=== PATIENT | female | born 1990 | race African-American/Black ===

== ENCOUNTER 2016-07-13 16:29 | Emergency (ER) | payer MEDICAID ==
[~2016-07-13] VITALS: Ht 165.1 cm; Wt 70.0 kg
[~2016-07-13 16:29] MED LIST: CEPH500C3 PO
[2016-07-13 16:30] VITALS: BP 123/76; PULSE 87; RESP 16; TEMP 98.2; O2SAT 97
[2016-07-13] MEDS ORDERED: PENI250T59 PO (17:50)
[2016-07-13] MEDS ORDERED: IBUP800T23 PO (18:49)
[2016-07-13] MEDS ORDERED: MOME17I EACH NARE (18:49)
--- NOTE | 2016-07-13 18:50 | PD ---
HPI Chief Complaint: Cold / Flu Symptoms Time Seen by Provider: 18:42 Travel History International Travel<30 days: No Contact w/Intl Traveler<30days: No Traveled to known affect area: No History of Present Illness HPI 26-year-old female presents to the emergency department complaint of cough, nasal congestion, body aches, decreased appetite that started this morning. Denies ear pain or throat pain. Her son was diagnosed with stomach flu and he has been vomiting. Reports feeling extremely hot last night and feverish but did not take her temperature not reported temperature maximum. Took ibuprofen at approximately 2:30 this afternoon with minimal relief of body aches. Denies chest pain, shortness breath, abdominal pain, nausea, vomiting. Has not tried any other treatments to alleviate her symptoms. Did not receive influenza vaccine. No known allergies. Denies significant past medical history. No other modifying factors or associated signs and symptoms. PFSH Past Medical History Anxiety: Yes Depression: Yes Diminished Hearing: No ?: Not LMP: 07/10/15 : 2 Para: 1 Miscarriage: 1 Dilation and Curettage (D&C): Yes Past Surgical History Section: Yes (2007) Gynecologic Surgery: Yes (D & C FOR A MISCARRIAGE) Social History Alcohol Use: No Tobacco Use: No Substance Use: No Allergies-Medications (Allergen,Severity, Reaction): Coded Allergies: No Known Allergies (Verified , 07/13/16) Reported Meds & Prescriptions Reported Meds & Active Scripts Active Nasonex Nasal [place] (Mometasone Furoate) 50 Mcg/Act Naspr 2 [place] EACH NARE DAILY PRN Ibuprofen 800 Mg Tab 800 Mg PO Q6HR PRN Reported Penicillin Vk (Penicillin V Potassium) 250 Mg Tab 250 Mg PO Q6H Review of Systems Except as stated in HPI: all other systems reviewed are Neg Physical Exam Narrative GENERAL: Well-nourished, well-developed [place] female patient, in no acute distress; afebrile; appears to not feel well, but nontoxic-appearing SKIN: Warm and dry. No rash. HEAD: Atraumatic. Normocephalic. EYES: Pupils equal and round at 3 mm with brisk reaction. No scleral icterus. No injection or drainage. PERRLA. ENT: Mucosa pink and moist. No erythema or exudates. No uvular edema. No uvular , palatal, or tonsillar deviation. Airway patent. EARS: Bilateral pinnae and external canals appear within normal limits. Bilateral tympanic membranes without erythema, dullness or perforation. NECK: Trachea midline. No lymphadenopathy. CARDIOVASCULAR: Regular rate and rhythm. No murmur appreciated. RESPIRATORY: No accessory muscle use. Clear to auscultation. Breath sounds equal bilaterally. GASTROINTESTINAL: Abdomen soft, non-tender, nondistended. Hepatic and splenic margins not palpable. Bowel sounds are active 4 quadrants. MUSCULOSKELETAL: No obvious deformities. No clubbing. No cyanosis. No edema. NEUROLOGICAL: Awake and alert. Oriented 3. No obvious cranial nerve deficits. Motor grossly within normal limits. Normal speech. Moves all extremities. 5/5 strength to all extremities. PSYCHIATRIC: Appropriate mood and affect; insight and judgment normal. Data Data Last Documented VS Vital Signs Date Time Temp Pulse Resp B/P Pulse Ox O2 Delivery O2 Flow Rate FiO2 07/13/16 16:30 98.2 87 16 123/76 97 Orders Influenzae A/B Antigen (07/13/16 18:42) MDM Medical Decision Making Medical Screen Exam Complete: Yes Emergency Medical Condition: Yes Medical Record Reviewed: Yes Differential Diagnosis Viral illness, influenza, bronchitis Narrative Course 26-year-old female with flulike symptoms that started this morning. And is also sick. The patient is afebrile. She reports feeling feverish last night but did not take her temperature. She doesn't look like she feels well, but she is nontoxic appearing. Physical exam is unremarkable. Patient took ibuprofen last at 2:30 PM. Influenza ordered and negative. Patient is medically cleared and stable for discharge. Discussed reasons to return to the emergency department. Instructed patient to follow up with primary care provider. Patient agrees with treatment plan. The patients vital signs are stable and the patient is stable for outpatient follow-up and treatment. Patient discharged home, stable and in no acute distress. Diagnosis Primary Impression: Viral illness Referrals: Primary Care Physician Patient Instructions: Cold Symptoms (ED), General Instructions, Safe Use of Cough and Cold Medicines (ED) Additional Instructions: Ibuprofen or Tylenol as directed and as needed to reduce fever/pain [id number] decongestants or antihistamines as directed and as needed for symptom management Get plenty of sleep/rest Drink plenty of fluids to prevent dehydration [place] diet to encourage nutrition such as crackers, fruit, applesauce, toast, soup etc. Use an air humidifier/turn off ceiling fans Follow-up with your primary care provider Return immediately to the emergency department with worsening of symptoms Med/Other Pt SpecificInfo: Prescription(s) given Scripts Mometasone Nasal [place] (Nasonex Nasal [place])50 Mcg/Act Naspr2 [place] EACH NARE DAILY PRN (NASAL CONGESTION) #1 BOTTLE Ref 0 Prov:Ana Luisa Sanchez 07/13/16 Ibuprofen 800 Mg [id number] Mg PO Q6HR PRN (PAIN) #30 TAB Ref 0 Prov:Ana Luisa Sanchez 07/13/16 Disposition: 01 DISCHARGE HOME Condition: Stable Ana Luisa Sanchez Jul 13, 2016 18:50 Ana Luisa Sanchez Jul 13, 2016 18:50
== END 2016-07-13 19:50 | disposition home or self-care (01) ==
LOC: NEPB 16:29
DX: B34.9 Viral infection, unspecified (principal); R05 Cough; R09.81 Nasal congestion; M79.1 Myalgia
CPT/HCPCS: 87804; 99283

== ENCOUNTER 2017-05-02 11:37 | Emergency (ER) | payer MEDICAID ==
[~2017-05-02] VITALS: Ht 165.1 cm; Wt 85.0 kg
[~2017-05-02 11:37] MED LIST changes: -CEPH500C3 PO; +IBUP800T23 PO; +MOME17I EACH NARE; +PENI250T59 PO
[2017-05-02 11:39] VITALS: BP 133/76; PULSE 100; RESP 20; TEMP 98.8; O2SAT 98
--- NOTE | 2017-05-02 12:08 | PD ---
HPI . Pelvic pain and vaginal spotting Chief Complaint: Related Problem Time Seen by Provider: 11:54 Travel History International Travel<30 days: No Contact w/Intl Traveler<30days: No Traveled to known affect area: No History of Present Illness HPI This patient presents stating that she had some pelvic pain and vaginal spotting following sexual intercourse. This happened last night. Her symptoms have completely resolved. She states her last normal menstrual period was sometime in the first part of March. She has had a positive home test. She has her first OB appointment next week. And about the spotting and cramping and presented to us today. In addition, she has a stuffy nose. PFSH Past Medical History Anxiety: Yes Depression: Yes Diminished Hearing: No Immunizations Current: Yes Tetanus Vaccination: < 5 Years ?: LMP: 03/09/17 ? : 2 Para: 1 Miscarriage: 1 Dilation and Curettage (D&C): Yes Past Surgical History Section: Yes (2007) Gynecologic Surgery: Yes (D & C FOR A MISCARRIAGE) Other Surgery: Yes (ectopic ) Social History Alcohol Use: No Tobacco Use: Yes (1 cigar) Substance Use: Yes (marijuana) Allergies-Medications (Allergen,Severity, Reaction): Coded Allergies: No Known Allergies (Verified , 07/13/16) Reported Meds & Prescriptions Reported Meds & Active Scripts Active Nasonex Nasal [place] (Mometasone Furoate) 50 Mcg/Act Naspr 2 [place] EACH NARE DAILY PRN Ibuprofen 800 Mg Tab 800 Mg PO Q6HR PRN Reported Penicillin Vk (Penicillin V Potassium) 250 Mg Tab 250 Mg PO Q6H Review of Systems Except as stated in HPI: all other systems reviewed are Neg HENT: Positive: Congestion Genitourinary: Positive: Pelvic Pain, Vaginal Bleeding, No: Urgency, Frequency , Dysuria Physical Exam Narrative GENERAL: Awake and alert in no acute distress. SKIN: warm/dry. HEAD: Normocephalic. Atraumatic. EYES: Pupils equal and round. No scleral icterus. No injection or drainage. ENT: No nasal bleeding or discharge. Mucous membranes pink and moist. Nasal congestion. NECK: Trachea midline. Full range of motion without pain.. CARDIOVASCULAR: Regular rate and rhythm. RESPIRATORY: No accessory muscle use. Clear to auscultation. Breath sounds equal bilaterally. GASTROINTESTINAL: Abdomen soft. Nontender. Bowel sounds present. Nondistended. MUSCULOSKELETAL: No obvious deformities. NEUROLOGICAL: Awake and alert. No obvious cranial nerve deficits. Motor grossly within normal limits. Normal speech. PSYCHIATRIC: Appropriate mood and affect; insight and judgment normal. Data Data Last Documented VS Vital Signs Date Time Temp Pulse Resp B/P (MAP) Pulse Ox O2 Delivery O2 Flow Rate FiO2 05/02/17 11:39 98.8 100 20 133/76 (95) 98 Room Air Orders Orders Ed Poc Ultrasound (05/02/17 11:56) Beta Hcg (Quant/Titer) (05/02/17 12:05) Urinalysis - C+S If Indicated (05/02/17 12:05) Us Pelvis (Ques Pr/Ect)W Trans (05/02/17 13:13) Labs Laboratory Tests Test 05/02/17 12:00 Urine Color YELLOW Urine Turbidity HAZY Urine pH 7.0 Urine Specific [place] 1.027 Urine Protein TRACE mg/dL Urine Glucose (UA) NEG mg/dL Urine Ketones 40 mg/dL Urine Occult Blood NEG Urine Nitrite NEG Urine Bilirubin NEG Urine Urobilinogen LESS THAN 2.0 MG/DL Urine Leukocyte Esterase NEG Urine RBC 4 /hpf Urine WBC LESS THAN 1 /hpf Urine Squamous Epithelial Cells 6 /hpf Urine Mucus MANY /lpf Microscopic Urinalysis Comment CULT NOT INDICATED Human Chorionic Gonadotropin, Quant 25975 MIU/ML MDM Medical Decision Making Medical Screen Exam Complete: Yes Emergency Medical Condition: Yes Medical Record Reviewed: Yes (her blood type is AB+.) Differential Diagnosis Differential diagnosis of vaginal bleeding includes but is not limited to dysfunctional uterine bleeding, normal menstrual cycle, ectopic , spontaneous AB, PID. Narrative Course This patient presents with vaginal bleeding and pelvic cramping and . Urine preg + UA>>neg for infection Quant 23,514 Formal ultrasound has been ordered. US: 1. Viable intrauterine with an estimated gestational age of about 6 weeks and one day. 2. Small cysts on both ovaries. Small amount of free fluid in the cul-de-sac. Procedures Procedure Narrative Emergency Department Pelvic ultrasound was performed with patient consent. The curvilinear probe was used in the transverse and sagittal views within the suprapubic region revealing no obvious intrauterine . She did have some thickening of the endometrial stripe. Diagnosis Primary Impression: Intrauterine Additional Impression: Bleeding in early Patient Instructions: Abdominal Pain in (ED), General Instructions Disposition: 01 DISCHARGE HOME Condition: Stable Tri Chun MD May 02, 2017 12:08
[2017-05-02 12:54] LABS: BILIRUBIN, URINE NEG (NEG); BLOOD, URINE NEG (NEG); GLUCOSE,URINE NEG (NEG); KETONE, URINE 40 mg/dL (NEG); MUCUS URINE MANY /lpf (OCC); NITRITE,URINE NEG (NEG); SQUAMOUS EPITHELIAL CELL URINE 6 /hpf (0-5); URINE COLOR YELLOW (YELLW/STRAW); URINE LEUKOCYTE ESTERASE NEG (NEG)
--- NOTE | 2017-05-02 15:43 | RADRPT ---
EXAM DATE/TIME: 05/02/2017 13:37 [facility] COMPARISON: US PELVIS ([facility] PREG/ECTOPIC) W/TRANSVAG, August 12, 2015, 15:26. INDICATIONS : Pelvic cramps with spotting about a week ago and a history of ectopic. LAB(S): Beta-hC MEDICAL HISTORY : . Ectopic. SURGICAL HISTORY : section. Ectopic removal. D&C. ENCOUNTER: Initial ACUITY: 4-6 days PAIN SCORE: 3/10 LOCATION: Right pelvis MEASUREMENTS: UTERUS: 8.4 x 5.9 x 4.7 cm ENDOMETRIAL STRIPE: 7 mm RIGHT OVARY: 3.8 x 3.0 x 2.9 cm LEFT OVARY: 3.2 x 1.7 x 1.9 cm FREE FLUID: Yes CROWN RUMP LENGTH: 0.4 = 6 WKS 1 DAYS FHR: 118 BPM FINDINGS: UTERUS: The myometrium has homogeneous echotexture without mass. Intrauterine with an estimated ge stational age of 6 weeks and one day based on crown-rump length. heart motion is 118 beats per minute. RIGHT OVARY: Ovary contains no mass or significant cystic lesion. LEFT OVARY: Ovary contains no mass or significant cystic lesion. MISCELLANEOUS: Small amount of free fluid in the cul-de-sac. CONCLUSION: 1. Viable intrauterine with an estimated gestational age of about 6 weeks and one day. 2. Small cysts on both ovaries. Small amount of free fluid in the cul-de-sac. Jason Helton MD on May 02, 2017 at 15:20 Board Certified Radiologist. This report was verified electronically.
== END 2017-05-02 16:05 | disposition home or self-care (01) ==
LOC: NEPD 11:37
DX: O46.91 Antepartum hemorrhage, unspecified, first trimester (principal); N83.202 Unspecified ovarian cyst, left side; N83.201 Unspecified ovarian cyst, right side; F41.9 Anxiety disorder, unspecified; F32.9 Major depressive disorder, single episode, unspecified; F17.290 Nicotine dependence, other tobacco product, uncomplicated; Z79.899 Other long term (current) drug therapy
CPT/HCPCS: 76700; 76817; 81001; 84702